=== PATIENT | male | born 1980 | race Two or more races ===

== ENCOUNTER 2017-05-01 08:59 | Emergency (ER) | payer OTHER ==
[2017-05-01 09:08] VITALS: BP 158/88
--- NOTE | 2017-05-01 09:53 | ED Physician Documentation ---
PD HPI OPHTHO - Stated complaint Stated Complaint: LT EYE SWELLING,SP EYE SURG - Chief complaint Chief Complaint: Heent - History obtained from History obtained from: Patient - History of Present Illness Timing - onset: Today Location: Left Associated symptoms: Headache (left frontal). No: Decreased vision Recently seen: Surgery (19 days S/P PRK surgery both eyes.) - Additional information Additional information: The patient is a 36-year-old male who is 19 days status post bilateral PRK surgery, who scratched his left eye on his pillow yesterday, and presents now with discomfort in his left eye and a left retro-orbital orbital headache. He denies any change in his visual acuity. He denies nausea or vomiting. Review of Systems Constitutional: denies: Fever Eyes: reports: Irritation (Left eye.). denies: Decreased vision, Discharge Nose: denies: Congestion GI: denies: Nausea, Vomiting Skin: denies: Rash Musculoskeletal: denies: Neck pain Neurologic: reports: Headache (Mild left retro-orbital headache.). denies: Focal weakness, Numbness PD PAST MEDICAL HISTORY - Past Medical History Cardiovascular: None Neuro: None, Other Endocrine/Autoimmune: None - Present Medications Home Medications: Ambulatory Orders Medication Instructions Recorded Confirmed Carboxymethylcellulose Sodium 15 ml OP 05/01/17 [Refresh Tears] Fluorometholone 1 drops TOP TID 05/01/17 05/01/17 - Allergies Allergies/Adverse Reactions: Allergies Allergy/AdvReac Type Severity Reaction Status Date / Time No Known Drug Allergies Allergy Verified 05/01/17 09:08 - Social History Does the pt smoke?: No Smoking Status: Never smoker PD ED PE NORMAL - Vitals Vital signs reviewed: Yes (Initially hypertensive.) - General General: Alert and oriented X 3, Well developed/nourished - HEENT HEENT: Atraumatic, PERRL, EOMI, Pharynx benign - Neck Neck: Supple, no meningeal sign, No adenopathy - Respiratory Respiratory: No respiratory distress - Derm Derm: No rash - Neuro Neuro: Alert and oriented X 3, No motor deficit, No sensory deficit, Normal speech PD ED PE EXPANDED - Eyes Eyes: Visual acuity - see nn (20/20 bilaterally), PERRL, Normal accommodation, EOMI, Left eye, Normal eyelids, No eyelid FB (everted), Nl conjunctiva/sclera, Normal corneas, Anterior chambers clear. No: Conj/sclera FB, Subconj hemorrhage , Corneal FB, Corneal abrasion, Fluorescein uptake, Papilledema Results - Vitals Vitals: Oxygen O2 Source Room air PD MEDICAL DECISION MAKING - ED course Complexity details: considered differential, d/w patient ED course: The patient's presentation is significant for left eye discomfort, 19 days status post PRK surgery. Visual acuity is normal. Fluorescein stain and slit exam of the left eye reveals no fluorescein uptake. There is no evidence of corneal abrasion or foreign body. Anterior chamber is clear. There is no clinical evidence to suggest conjunctivitis or iritis. 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 Departure - Departure Disposition: 01 Home, Self Care Clinical Impression: Left eye pain, Status post eye surgery Condition: Stable Instructions: ED Eye Injury Corneal Abrasion Follow-Up: BHUPINDER Edwards [Provider Group] Comments: You can use ibuprofen, up to 800 mg 3 times daily if needed for pain or headache. Follow up with your research and development engineer or return to the emergency department, if you develop increasing pain or swelling in your eye, or otherwise worsening symptoms. Discharge Date/Time: 05/01/17 10:11
== END 2017-05-01 10:11 | disposition home or self-care (01) ==
LOC: ED 08:59
DX: H57.12 Ocular pain, left eye (principal); Z98.890 Other specified postprocedural states
CPT/HCPCS: 99282; 99283

== ENCOUNTER 2018-11-14 16:09 | Emergency (ER) | payer OTHER ==
[2018-11-14] MEDS ORDERED: TETANUS/DIPHTHERIA/PERTUSSIS 0.5 ML SYRINGE IM ONE (17:02)
--- NOTE | 2018-11-14 17:04 | ED Physician Documentation ---
PD HPI LOWER EXT INJURY - Stated complaint Stated Complaint: L LEG PX/SWELLING - Chief complaint Chief Complaint: Ext Problem - History obtained from History obtained from: Patient - History of Present Illness PD HPI LOW EXT INJURY LOCATION: Left (He was mowing the lawn and a rock came up and hit him on the left [place] and he has moderate pain there but declines pain medication. Tetanus is unknown. He is able to walk and bear weight.) Review of Systems Constitutional: reports: Reviewed and negative Cardiac: reports: Reviewed and negative Respiratory: reports: Reviewed and negative PD PAST MEDICAL HISTORY - Past Medical History Cardiovascular: None Endocrine/Autoimmune: None - Present Medications Home Medications: Ambulatory Orders Medication Instructions Recorded Confirmed Carboxymethylcellulose Sodium 15 ml OP 05/01/17 [Refresh Tears] Fluorometholone 1 drops TOP TID 05/01/17 05/01/17 - Allergies Allergies/Adverse Reactions: Allergies Allergy/AdvReac Type Severity Reaction Status Date / Time No Known Drug Allergies Allergy Verified 05/01/17 09:08 - Social History Does the pt smoke?: No Smoking Status: Never smoker PD ED PE NORMAL - Vitals Vital signs reviewed: Yes - General General: Alert and oriented X 3, No acute distress - Derm Derm: Normal color, Warm and dry - Neuro Neuro: Alert and oriented X 3, Normal speech PD ED PE EXPANDED - Extremities TAYE LE visual: 1 - abrasion (Shallow abrasion here with underlying swelling, no real bony tenderness.) Results - Vitals Vitals: Vital Signs - 24 hr 11/14/18 16:21 Temperature 36.5 C Heart Rate 88 Respiratory 16 Rate Blood Pressure 137/89 H O2 Saturation 100 Oxygen O2 Source Room air - Rads (name of study) L tibfib Radiology: EMP read contemporaneously (normal) Departure - Departure Disposition: 01 Home, Self Care Clinical Impression: Contusion of left leg Qualifiers: Encounter type: initial encounter Qualified Code(s): S80.12XA - Contusion of le ft lower leg, initial encounter Condition: Good Record reviewed to determine appropriate education?: Yes Instructions: ED Contusion Lower Extr Ch
--- NOTE | 2018-11-14 17:36 | XRAY Report ---
Reason: hit in left lagun[place] by rock, now pain swelling Procedure Date: 11/14/2018 Accession Number: [id number] / [id number] Procedure: XR - Tib/Fib LT CPT Code: FULL RESULT: EXAM: LEFT TIBIA/FIBULA RADIOGRAPHY EXAM DATE: 11/14/2018 05:26 PM. CLINICAL HISTORY: Hit in left lagun[place] by rock, now pain and swelling. COMPARISON: None. TECHNIQUE: 2 views. FINDINGS: Bones: Normal. No fracture or bone lesion. Joints: The visualized knee and ankle joints are normal. No effusions. Soft Tissues: Normal. No soft tissue swelling. IMPRESSION: Normal tibia/fibula radiography. [facility]
[2018-11-14 18:05] VITALS: BP 140/74
== END 2018-11-14 18:19 | disposition home or self-care (01) ==
LOC: ED 16:09
DX: S80.12XA Contusion of left lower leg, initial encounter (principal); W20.8XXA Other cause of strike by thrown, projected or falling object, initial encounter; Y93.H2 Activity, gardening and landscaping
CPT/HCPCS: 90471; 99282; 99283

== ENCOUNTER 2019-01-30 17:16 | Emergency (ER) | payer OTHER ==
[2019-01-30 17:22] VITALS: BP 150/81
--- NOTE | 2019-01-30 17:30 | ED Physician Documentation ---
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 Pain is of the middle phalanx of the fourth finger. No other injuries. Pain is mild.) Review of Systems Constitutional: reports: Reviewed and negative Cardiac: reports: Reviewed and negative Respiratory: reports: Reviewed and negative PD PAST MEDICAL HISTORY - Past Medical History Cardiovascular: None Respiratory: None Neuro: Other Endocrine/Autoimmune: None GI: None : None HEENT: None, Other Psych: None Musculoskeletal: Other Derm: None - Present Medications Home Medications: Ambulatory Orders Medication Instructions Recorded Confirmed Carboxymethylcellulose Sodium 15 ml OP 05/01/17 [Refresh Tears] RX: Fluorometholone 1 drops TOP TID 05/01/17 05/01/17 - Allergies Allergies/Adverse Reactions: Allergies Allergy/AdvReac Type Severity Reaction Status Date / Time No Known Drug Allergies Allergy Verified 01/30/19 17:22 - Social History Does the pt smoke?: No Smoking Status: Never smoker Does the pt drink ETOH?: No Does the pt have substance abuse?: No - Immunizations Immunizations are current?: Yes - POLST Patient has POLST: No PD ED PE NORMAL - Vitals Vital signs reviewed: Yes - General General: Alert and oriented X 3, No acute distress - Extremities Extremities: Other (Mild tenderness of the middle phalanx of the fourth finger of the left hand without deformity. Normal neurovascular function of the tip.) - Neuro Neuro: Alert and oriented X 3, Normal speech Results - Vitals Vitals: Vital Signs - 24 hr 01/30/19 17:20 Temperature 36.2 C L Heart Rate 76 Respiratory 19 Rate Blood Pressure 150/81 H O2 Saturation 97 Oxygen O2 Source Room air - Rads (name of study) L 4th finger Radiology: EMP read indepedently (no frx) Departure - Departure Disposition: 01 Home, Self Care Clinical Impression: Crushing injury of finger of left hand Condition: Good Record reviewed to determine appropriate education?: Yes Instructions: ED Crush Injury Finger No Fx Comments: [place] not better in a week. Tylenol or ibuprofen as needed for pain. Return if worse or new symptoms develop. Your blood pressure was elevated today on check into the emergency department. This does not mean that you have hypertension, it is a common phenomenon to come to the emergency department and have elevated blood pressure. I recommend that you see your primary care physician within the week to have it rechecked when you are feeling better. Discharge Date/Time: 01/30/19 17:52
--- NOTE | 2019-01-31 07:40 | XRAY Report ---
Reason: 4th finger inj Procedure Date: 01/30/2019 Accession Number: [id number] / [id number] Procedure: XR - Finger(s) LT CPT Code: FULL RESULT: EXAM: LEFT FOURTH DIGIT RADIOGRAPHY EXAM DATE: 01/30/2019 05:42 PM. CLINICAL HISTORY: 4th finger inj. COMPARISON: None. TECHNIQUE: 3 views. FINDINGS: Bones: Normal. No fracture or bone lesion. Joints: Normal. No subluxations. Soft Tissues: Soft tissue swelling. IMPRESSION: Normal digit radiography. [facility]
== END 2019-01-30 17:52 | disposition home or self-care (01) ==
LOC: ED 17:16
DX: S67.195A Crushing injury of left ring finger, initial encounter (principal); W23.0XXA Caught, crushed, jammed, or pinched between moving objects, initial encounter; Y99.0 Civilian activity done for income or pay; R03.0 Elevated blood-pressure reading, without diagnosis of hypertension
CPT/HCPCS: 73140; 99282; 99283

== ENCOUNTER 2021-11-30 08:00 | Outpatient (CLI) | payer OTHER | END 2021-11-30 23:59 | disposition home or self-care (01) | LOC: LAB.N 08:00 | PROVIDERS: ATTEND Physician Assistant Medical | DX: U07.1 COVID-19 (principal) ==

== ENCOUNTER 2023-06-01 12:45 | Outpatient (CLI) | payer OTHER ==
[2023-06-01 17:53] LABS: BASOPHILS # (AUTO) 0.1 10^3/uL (0.0-0.1); BASOPHILS % (AUTO) 1.3 %; EOSINOPHILS # (AUTO) 0.2 10^3/uL (0.0-0.7); EOSINOPHILS % (AUTO) 4.2 %; HCT - HEMATOCRIT 42.9 % (42.0-52.0); HGB - HEMOGLOBIN 14.1 g/dL (14.0-18.0); LYMPHOCYTES # (AUTO) 2.1 10^3/uL (1.5-3.5); LYMPHOCYTES % (AUTO) 45.1 %; MEAN CORPUSCULAR HEMOGLOBIN 29.5 pg (27.0-31.0); MEAN CORPUSCULAR HGB CONC 32.9 g/dL (32.0-36.0); MEAN CORPUSCULAR VOLUME 89.7 fL (80.0-94.0); MEAN PLATELET VOLUME 11.1 fL (7.4-11.4); MONOCYTES # (AUTO) 0.3 10^3/uL (0.0-1.0); MONOCYTES % (AUTO) 6.5 %; NEUTROPHILS % (AUTO) 42.7 %; PLT - PLATELET COUNT 271 10^3/uL (130-450); RED BLOOD COUNT 4.78 10^6/uL (4.70-6.10); RED CELL DISTRIBUTION WIDTH 11.9 % (12.0-15.0); WHITE BLOOD COUNT 4.8 x10^3/uL (4.8-10.8)
[2023-06-01 18:16] LABS: BUN - BLOOD UREA NITROGEN 15 mg/dL (6-20); CARBON DIOXIDE - CO2 27 mmol/L (21-32); CHLORIDE 103 mmol/L (101-111); CHOL/HDL RATIO 2.5 (<5.0); CHOLESTEROL 182 mg/dL; GFR - MDRD 83 (>89); GLUCOSE 85 mg/dL (74-104); HDL CHOLESTEROL 74 mg/dL; LDL CHOLESTEROL,CALCULATED 98 mg/dL; LDL/HDL RATIO 1.3 (<3.6); POTASSIUM 3.9 mmol/L (3.5-4.5); SODIUM 138 mmol/L (135-145); TRIGLYCERIDES 52 mg/dL (48-352); VLDL CHOLESTEROL 10 mg/dL
[2023-06-01 21:45] LABS: ESTIMATED AVERAGE GLUCOSE 100 mg/dL (70-100); HEMOGLOBIN A1c% 5.1 % (4.27-6.07)
== END 2023-06-01 13:00 | disposition home or self-care (01) ==
LOC: LAB.N 12:45
PROVIDERS: ATTEND Physician Assistant Medical
DX: I10 Essential (primary) hypertension (principal)
CPT/HCPCS: 36415; 80048; 80061; 83036; 83721; 85025